=== PATIENT | male | born 1985 | race Caucasian/White ===

== ENCOUNTER 2017-11-08 20:37 | Emergency (ER) | payer BC ==
[~2017-11-08] VITALS: Ht 167.6 cm; Wt 70.3 kg
== END 2017-11-08 21:18 | disposition home or self-care (01) ==
LOC: ED 20:37
DX: S91.331A Puncture wound without foreign body, right foot, initial encounter (principal); W22.09XA Striking against other stationary object, initial encounter
CPT/HCPCS: 99282